=== PATIENT | female | born 1935 | race Hispanic/Latino ===

== ENCOUNTER 2017-08-31 16:25 | Inpatient (IN) | payer MEDICARE ==
[~2017-08-31] VITALS: Ht 149.9 cm; Wt 85.7 kg
[2017-08-31 17:30] VITALS: BP 171/58
[2017-08-31] MEDS ORDERED: RANO500T2 PO (19:32)
[2017-08-31] MEDS ORDERED: AEC81 PO (19:32)
[2017-08-31] MEDS ORDERED: FURO40TA5 PO (19:32)
[2017-08-31] MEDS ORDERED: ZOLP10TA6 PO (19:32)
[2017-08-31] MEDS ORDERED: ALBU8.5H8 IH (19:32)
[2017-08-31] MEDS ORDERED: ISOS120T10 PO (19:32)
[2017-08-31] MEDS ORDERED: MV C PO (19:32)
[2017-08-31] MEDS ORDERED: ATOR40TA69 PO (19:32)
[2017-08-31] MEDS ORDERED: UMEC1DIS IH (19:32)
[2017-08-31] MEDS ORDERED: FISH1CAP27 PO (19:32)
[2017-08-31] MEDS ORDERED: AMLO2.5T PO (19:32)
[2017-08-31] MEDS ORDERED: POTA-79 PO (19:32)
[2017-08-31] MEDS ORDERED: VALS320T2 PO (19:32)
[2017-08-31] MEDS ORDERED: LEVO88TA7 PO (19:32)
[2017-08-31] MEDS ORDERED: SERT100T PO (19:32)
[2017-08-31] MEDS ORDERED: NITR0.4T50 SL (19:32)
[2017-08-31] MEDS ORDERED: FERS325 PO (19:32)
[2017-08-31] MEDS ORDERED: ALPR0.5T PO (19:32)
[2017-08-31] MEDS ORDERED: ESOM40CA PO (19:32)
[2017-08-31] MEDS ORDERED: CARV3.12 PO (19:32)
[2017-08-31] MEDS ORDERED: ACET-2123 PO (19:32)
[2017-08-31 20:16] VITALS: BP 115/57
[2017-08-31] MEDS ORDERED: ACETAMINOPHEN 325 MG TAB ONE (22:52)
[2017-08-31] MEDS ORDERED: ACETAMINOPHEN 325 MG TAB PO PRN (23:30)
[2017-09-01] VITALS (14 sets, daily range): BP systolic 139–157; BP diastolic 56–99
[2017-09-01 00:32] LABS: CREATINE KINASE MB 0.8 ng/mL (0.5-3.6); CREATINE KINASE, TOTAL 48 U/L (21-232); MYOGLOBIN 93 ng/mL (10-92); TROPONIN I < 0.04 ng/mL (0.00-0.06)
[2017-09-01] MEDS ORDERED: POTASSIUM CHLORIDE 20MEQ/100ML 100 ML IV PRN (03:45)
[2017-09-01] MEDS ORDERED: DEXTROSE 50%-WATER 50 ML DISP.SYRIN IV PRN (03:45)
[2017-09-01] MEDS ORDERED: ONDANSETRON HCL 4 MG/2 ML VIAL IVP PRN (03:45)
[2017-09-01] MEDS ORDERED: IPRATROPIUM/ALBUTEROL SULFATE 3 ML SOLUTION IH PRN (03:45)
[2017-09-01] MEDS ORDERED: GLUCAGON 1MG KIT 1 MG ML IM PRN (03:45)
[2017-09-01] MEDS ORDERED: POTASSIUM CHLORIDE 20 MEQ ERTAB PO PRN (03:45)
[2017-09-01] MEDS ORDERED: HYDRALAZINE HCL 20 MG/ML VIAL IV PRN (03:45)
[2017-09-01] MEDS ORDERED: LACTULOSE 20 GM/30 ML UDCUP PO PRN (03:45)
[2017-09-01] MEDS ORDERED: POTASSIUM CHLORIDE 10% ELIXIR 20 MEQ/15 ML UDCUP PO PRN (03:45)
[2017-09-01] MEDS ORDERED: LIDOCAINE HCL-MPF 1% 2ML VIAL IVP PRN (03:45)
[2017-09-01 05:35] LABS: MEAN CORPUSCULAR HEMOGLOBIN 29.6 pg (27.0-33.0); PLATELET COUNT (AUTO) 164 K/uL (130-400); RED BLOOD CELL COUNT(AUTO) 4.25 MIL/uL (4.00-5.50); RED CELL DISTRIBUTION WIDTH 17.4 % (11.0-15.5); WHITE BLOOD COUNT (AUTO) 7.6 K/uL (4.8-10.8)
[2017-09-01 06:02] LABS: CARBON DIOXIDE 31 mmol/L (21-32); CHLORIDE 105 mmol/L (101-111); CHOLESTEROL 160 mg/dL (<200); CREATINE KINASE MB 0.8 ng/mL (0.5-3.6); CREATINE KINASE, TOTAL 56 U/L (21-232); GLOMERULAR FILTR. RATE CALC 25 mL/min (>60); GLUCOSE,RANDOM 113 mg/dL (70-105); HDL CHOLESTEROL 54 mg/dL (35-85); LDL DIRECT 78 mg/dL (0-99); MYOGLOBIN 107 ng/mL (10-92); POTASSIUM 4.6 mmol/L (3.5-5.1); SODIUM SERUM 140 mmol/L (136-145); THYROID STIMULATING HORMONE 14.56 uIU/mL (0.36-3.74); TRIGLYCERIDES 239 mg/dL (30-200); TROPONIN I < 0.04 ng/mL (0.00-0.06); UREA NITROGEN, BLOOD 35 mg/dL (7-18)
[2017-09-01] MEDS: INSULIN HUMULIN R 100 UNIT/ML 3ML SQ SCH ×4 (06:33→21:00)
[2017-09-01] MEDS: FAMOTIDINE 20MG TAB 20 MG TAB PO SCH ×2 (09:00→22:42)
[2017-09-01] MEDS ORDERED: NITROGLYCERIN 0.4 MG SL TAB SL SCH (09:30)
[2017-09-01] MEDS: ALPRAZOLAM 0.5 MG TABLET PO SCH ×2 (09:30→17:07)
[2017-09-01] MEDS ORDERED: LIDOCAINE HCL 1% MDV 50ML VIAL ONE (10:29)
[2017-09-01] MEDS ORDERED: BUPIVACAINE/PF 0.25% 30ML VIAL IJ ONE (10:29)
[2017-09-01] MEDS ORDERED: MEPERIDINE-PF 25 MG/ML SYG ONE ×2 (10:29→11:29)
[2017-09-01] MEDS ORDERED: ISOVUE-300 100 ML VIAL IV ONE (10:29)
[2017-09-01] MEDS ORDERED: CEFAZOLIN 1GM / D5W 50ML 0 ML ONE (10:29)
[2017-09-01] MEDS ORDERED: MIDAZOLAM HCL 1 MG/ML 2ML VIAL ONE ×2 (10:29→11:29)
[2017-09-01] MEDS ORDERED: VANCOMYCIN 1GM+NS 250ML 500 ML IV ONE (10:53)
[2017-09-01] MEDS ORDERED: NITROGLYCERIN 0.4 MG SL TAB SL PRN (11:05)
[2017-09-01] MEDS ORDERED: ATROPINE SULFATE 0.1 MG/ML 10 ML SYG IVP ONE (11:39)
[2017-09-01] MEDS ORDERED: ACETAMINOPHEN-CODEINE 300/30MG TAB PO PRN ×2 (12:45)
[2017-09-01] MEDS ORDERED: ACETAMINOPHEN 325 MG TAB PO PRN (12:45)
[2017-09-01] MEDS ORDERED: ZOLPIDEM TARTRATE 5 MG TAB PO SCH (21:00)
[2017-09-01] MEDS: RANOLAZINE 500 MG TAB.SR.12H PO SCH (22:42)
[2017-09-02 00:50] VITALS: BP 177/88
[2017-09-02 01:20] VITALS: BP 181/85
[2017-09-02] MEDS: ALPRAZOLAM 0.5 MG TABLET PO SCH ×3 (01:30→16:31)
[2017-09-02 03:35] VITALS: BP 125/56
[2017-09-02 03:43] LABS: CREATININE 2.1 mg/dL (0.5-1.5); POTASSIUM 4.2 mmol/L (3.5-5.1)
[2017-09-02] MEDS: INSULIN HUMULIN R 100 UNIT/ML 3ML SQ SCH ×3 (06:32→16:30)
[2017-09-02 07:00] VITALS: BP 155/73
[2017-09-02] MEDS: RANOLAZINE 500 MG TAB.SR.12H PO SCH (08:30)
[2017-09-02] MEDS: FAMOTIDINE 20MG TAB 20 MG TAB PO SCH (08:30)
[2017-09-02] MEDS ORDERED: POTASSIUM CHLORIDE 20 MEQ ERTAB PO SCH (09:00)
[2017-09-02] MEDS ORDERED: LOSARTAN 100 MG TABLET PO SCH (09:00)
[2017-09-02] MEDS ORDERED: ASPIRIN 81 MG EC TAB PO SCH (09:00)
[2017-09-02] MEDS ORDERED: LEVOTHYROXINE 88 MCG TABLET PO SCH (09:00)
[2017-09-02] MEDS ORDERED: ATORVASTATIN CALCIUM 40 MG TABLET PO SCH (09:00)
[2017-09-02] MEDS ORDERED: TANDEM PLUS PO SCH (09:00)
[2017-09-02] MEDS ORDERED: ISOSORBIDE MONO 60 MG TAB.SR PO SCH (09:00)
[2017-09-02] MEDS ORDERED: AMLODIPINE BESYLATE 2.5 MG TAB PO SCH (09:00)
[2017-09-02] MEDS ORDERED: FUROSEMIDE 40 MG TABLET PO SCH (09:00)
[2017-09-02] MEDS ORDERED: SERTRALINE HCL 50 MG TABLET PO SCH (09:00)
[2017-09-02] MEDS ORDERED: FERROUS SULFATE 325 MG TABLET.DR PO SCH (09:00)
[2017-09-02] MEDS ORDERED: **HM** ANORO ELLIPTA 62.5-25MCG IH SCH (09:00)
[2017-09-02 11:00] VITALS: BP 112/72
[2017-09-02 16:00] VITALS: BP 131/76
== END 2017-09-02 18:53 | disposition home or self-care (01) | DRG 243 ==
LOC: 2AH 17:18
PROVIDERS: ADMIT Family Medicine; ATTEND Family Medicine
PROC: 0JH606Z Insertion of Pacemaker, Dual Chamber into Chest Subcutaneous Tissue and Fascia, Open Approach (ICD-10-PCS; principal; 2017-09-01)
PROC: 02H63JZ Insertion of Pacemaker Lead into Right Atrium, Percutaneous Approach (ICD-10-PCS; 2017-09-01)
PROC: 02HK3JZ Insertion of Pacemaker Lead into Right Ventricle, Percutaneous Approach (ICD-10-PCS; 2017-09-01)
DX: I44.2 Atrioventricular block, complete (principal); I50.32 Chronic diastolic (congestive) heart failure; E11.22 Type 2 diabetes mellitus with diabetic chronic kidney disease; D64.9 Anemia, unspecified; E03.9 Hypothyroidism, unspecified; E78.5 Hyperlipidemia, unspecified; I12.9 Hypertensive chronic kidney disease with stage 1 through stage 4 chronic kidney disease, or unspecified chronic kidney disease; I25.10 Atherosclerotic heart disease of native coronary artery without angina pectoris; K21.9 Gastro-esophageal reflux disease without esophagitis; F32.9 Major depressive disorder, single episode, unspecified; F41.9 Anxiety disorder, unspecified; J44.9 Chronic obstructive pulmonary disease, unspecified; M06.9 Rheumatoid arthritis, unspecified; M81.0 Age-related osteoporosis without current pathological fracture; N18.3 Chronic kidney disease, stage 3 (moderate); Z87.891 Personal history of nicotine dependence; Z90.710 Acquired absence of both cervix and uterus; Z95.5 Presence of coronary angioplasty implant and graft; Z90.49 Acquired absence of other specified parts of digestive tract; I16.0 Hypertensive urgency
CPT/HCPCS: 33208; 36415; 70450; 71045; 80048; 80061; 82550; 82553; 82948; 83874; 84443; 84484; 85027; 93005; 93306; 94664; 99152; 99153; C1769; C1785; J0461; J0690; J1815; J2175; J2250; J3370; J3490; Q9967